=== PATIENT | female | born 1990 | race Caucasian/White ===

== ENCOUNTER 2019-09-25 09:22 | Observation (INO) ==
[2019-09-25] MEDS ORDERED: LORazepam 2 MG/1 ML VIAL ONE (09:24)
[2019-09-25] MEDS ORDERED: LORazepam 2 MG/1 ML VIAL IV STA (09:25)
[2019-09-25] MEDS ORDERED: ONDANSETRON 4 MG/2 ML VIAL ONE (09:26)
[2019-09-25] MEDS ORDERED: levETIRAcetam 500 MG/5 ML VIAL IV ONE ×2 (09:27→12:58)
[2019-09-25] MEDS ORDERED: ONDANSETRON 4 MG/2 ML VIAL IV STA (09:28)
[2019-09-25] MEDS ORDERED: fentaNYL 100 MCG/2 ML VIAL IV STA (09:34)
[2019-09-25 10:17] LABS: Basophils % 0.7 % (0.0-0.8); Eosinophils # 0.2 10*3/uL (0.0-0.87); Eosinophils % 4.1 % (0.00-10.9); Hematocrit 35.3 VOL% (35.7-47.0); Hemoglobin 11.3 GM/DL (12.0-16.0); Immature Granulocytes % 0.2 %; Immature Granulocytes Absolute 0.01 #; Lymphocytes # 2.8 10*3/uL (1.4-4.0); Lymphocytes % 52.1 % (21.3-54.2); Mean Corpuscular Volume 82.3 FL (87-102); Mean Platelet Volume 9.8 FL (9.6-12.0); Monocytes % 7.6 % (1.7-12.7); Neutrophils % 35.3 % (38.7-73.9); Platelet Count 217 T/CUMM (130-400); Red Blood Count 4.29 MC/CUMM (3.8-5.5); Red Cell Distribution Width 12.7 % (9.3-17.3); White Blood Count 5.4 T/CUMM (4-12)
[2019-09-25 10:34] LABS: Amorphous Crystals,Urine Few /HPF (Few); Apearance,Urine Slightly Hazy (Clear); Bilirubin,Urine Negative (Negative); Blood, Urine Negative (Negative); Glucose,Urine (UA) Negative (Negative); Hyaline Casts,Urine 1 /LPF (0-3); Ketones,Urine Negative (Negative); Mucus,Urine Occasional /LPF (Occasional); Nitrite,Urine Negative (Negative); Protein,Urine Negative; RBC,Urine <1 /HPF (0-4); Squamous Epithelial Cell,Urine Occasional /HPF (0-10); Urine Color Yellow (Yellow); Urine Specific Gravity 1.015 (1.001-1.035); Urine Urobilinogen < 2.0 EU/DL (0.2-1.0)
[2019-09-25 10:37] LABS: Atypical Lymphocytes Few; Eosinophils 5 % (0-10); Hypochromasia 1+; Lymphocytes 54 % (20-55); Segmented Neutrophils 36 % (50-85); Total Cells Counted 100
[2019-09-25 10:38] LABS: Microcytosis Slight; Ovalocytes Slight; Platelet Estimate Normal
[2019-09-25 10:39] LABS: Alanine Aminotransferase 26 U/L (13-56); Albumin 3.4 G/DL (3.4-5.0); Alkaline Phosphatase 74 U/L (45-117); Aspartate Amino Transferase 16 U/L (0-37); Bilirubin,Total < 0.39 MG/DL (0.2-1.0); Blood Urea Nitrogen 14 MG/DL (7-18); Calcium 8.8 MG/DL (8.5-10.1); Estimated Glom Filtration Rate 70 ML/MIN; Glucose 76 MG/DL (74-106); Total Protein 6.6 G/DL (6.4-8.3)
[2019-09-25 10:48] LABS: Barbiturates Screen,Urine Negative (Negative); Benzodiazepines Screen,Urine Positive (Negative); Cannabinoid Screen,Urine Negative (Negative); Opiate Screen,Urine Negative (Negative); Phencyclidine Screen,Urine Negative (Negative)
[2019-09-25] MEDS ORDERED: HYDROmorphone 2 MG/1 ML VIAL IV PRN (11:07)
[2019-09-25] MEDS ORDERED: ALBUTEROL/IPRATROPIUM 3 ML NEB RESP TX PRN (11:07)
[2019-09-25] MEDS ORDERED: ACETAMINOPHEN 325 MG TABLET PO PRN (11:07)
[2019-09-25] MEDS ORDERED: KETOROLAC 10 MG TABLET PO PRN (11:07)
[2019-09-25] MEDS ORDERED: RIZATRIPTAN ODT 5 MG TABLET PO PRN (11:22)
[2019-09-25] MEDS: ONDANSETRON 4 MG/2 ML VIAL IV PRN (12:33)
[2019-09-25] MEDS: KETOROLAC 15 MG/1 ML VIAL IV PRN (12:36)
[2019-09-25] MEDS: LACTATED RINGERS 1,000 ML IV SCH (13:30)
[2019-09-25] MEDS ORDERED: HYDROmorphone 2 MG/1 ML VIAL IV ONE (13:38)
[2019-09-25] MEDS: oxyCODONE/ACETAMINOPHEN 5-325 MG TABLET PO PRN ×2 (15:14→20:46)
[2019-09-25] MEDS: HYDROmorphone 2 MG/1 ML VIAL IV PRN ×3 (19:24→23:47)
[2019-09-25] MEDS: DOCUSATE SODIUM 100 MG CAPSULE PO SCH (20:07)
[2019-09-25] MEDS: TOPIRAMATE 100 MG TABLET PO SCH (20:07)
[2019-09-26] MEDS: oxyCODONE/ACETAMINOPHEN 5-325 MG TABLET PO PRN ×3 (01:21→14:05)
[2019-09-26] MEDS: HYDROmorphone 2 MG/1 ML VIAL IV PRN ×2 (01:54→04:31)
[2019-09-26] MEDS: LACTATED RINGERS 1,000 ML IV SCH (02:05)
[2019-09-26 04:31] LABS: Basophils % 0.5 % (0.0-0.8); Eosinophils # 0.1 10*3/uL (0.0-0.87); Eosinophils % 1.5 % (0.00-10.9); Hematocrit 31.6 VOL% (35.7-47.0); Hemoglobin 9.8 GM/DL (12.0-16.0); Immature Granulocytes % 0.2 %; Immature Granulocytes Absolute 0.02 #; Lymphocytes # 1.9 10*3/uL (1.4-4.0); Lymphocytes % 21.7 % (21.3-54.2); Mean Corpuscular Volume 84.5 FL (87-102); Mean Platelet Volume 10.4 FL (9.6-12.0); Monocytes % 8.1 % (1.7-12.7); Platelet Count 199 T/CUMM (130-400); Red Blood Count 3.74 MC/CUMM (3.8-5.5); Red Cell Distribution Width 12.5 % (9.3-17.3); White Blood Count 8.5 T/CUMM (4-12)
[2019-09-26 04:44] LABS: Osmolality,Calculated 271.8 MOS/KG (273-304)
[2019-09-26] MEDS ORDERED: HYDROmorphone 2 MG/1 ML VIAL IV PRN (07:13)
[2019-09-26] MEDS: TOPIRAMATE 100 MG TABLET PO SCH (08:04)
[2019-09-26] MEDS: DOCUSATE SODIUM 100 MG CAPSULE PO SCH (08:07)
[2019-09-26] MEDS ORDERED: PANTOPRAZOLE 40 MG TABLET PO SCH ×2 (09:00→10:12)
[2019-09-26] MEDS ORDERED: FLUoxetine 20 MG CAPSULE PO SCH (09:00)
[2019-09-26] MEDS ORDERED: TOPIRAMATE 100 MG TABLET PO SCH (09:13)
[2019-09-26] MEDS ORDERED: RIBOFLAVIN 50 MG PO SCH (10:12)
[2019-09-26] MEDS ORDERED: ESTROGENS (CONJ) 0.625 MG TABLET PO SCH (11:00)
[2019-09-26] MEDS: KETOROLAC 15 MG/1 ML VIAL IV PRN (11:49)
[2019-09-26] MEDS ORDERED: INFLUENZA VIRUS VACCINE 0.5 ML SYRINGE IM ONE (13:27)
[2019-09-26] MEDS: ONDANSETRON 4 MG/2 ML VIAL IV PRN (14:09)
[2019-09-26 17:10] VITALS: BP 112/65
[2019-09-26] MEDS ORDERED: MONTELUKAST 10 MG TABLET PO SCH (21:00)
[2019-09-26] MEDS ORDERED: MAGNESIUM OXIDE 400 MG TABLET PO SCH (21:00)
[2019-09-26] MEDS ORDERED: levETIRAcetam 500 MG TABLET PO SCH (21:00)
== END 2019-09-26 17:58 | disposition home or self-care (01) ==
LOC: EDUNIT# → N.ED 09:22 → N.EDINP 09:22 → N.ICU 12:01 → N.3E 09-26 09:20
PROVIDERS: ADMIT Surgery; ATTEND Surgery